=== PATIENT | male | born 1970 | race Hispanic/Latino ===

== ENCOUNTER 2017-09-21 14:29 | Inpatient (IN) | payer OTHER ==
[~2017-09-21] VITALS: Ht 177.8 cm; Wt 72.5 kg
[~2017-09-21 14:29] MED LIST: ALPR1TAB2 PO; AMLO5TAB2 PO; METO50TA18 PO; OMEP20CA10 PO; OMEP20TA25 PO
[2017-09-21] MEDS ORDERED: ONDANSETRON HCL MDV 20ML 2 MG/ML VIAL ONE (14:36)
[2017-09-21] MEDS ORDERED: HALOPERIDOL LACTATE 5 MG/ML VIAL ONE (14:45)
[2017-09-21] MEDS ORDERED: KETOROLAC TROMETHAMINE 30MG/ML ONE (14:45)
[2017-09-21 14:49] LABS: BASOPHILS % (AUTO) 0.9 % (0.0-5.0); EOSINOPHILS % (AUTO) 2.7 % (0.0-8.0); HEMATOCRIT 39.3 % (42-54); LYMPHOCYTES % (AUTO) 15.3 % (21.0-51.0); MEAN CORPUSCULAR HEMOGLOBIN 23.1 pg (27.0-33.0); MEAN CORPUSCULAR HGB CONC 31.7 g/dL (32.0-36.0); MEAN CORPUSCULAR VOLUME 72.7 fL (79-99); MONOCYTES % (AUTO) 7.6 % (3.0-13.0); NEUTROPHILS % (AUTO) 73.5 % (40.0-77.0); NUCLEATED RED BLOOD CELLS 0.1 % (0.0-0.19); PLATELET COUNT (AUTO) 226 K/uL (130-400); RED CELL DISTRIBUTION WIDTH 19.9 % (11.0-15.5); WHITE BLOOD COUNT (AUTO) 7.7 K/uL (4.8-10.8)
[2017-09-21 15:01] LABS: CREATININE 1.2 mg/dL (0.5-1.5)
[2017-09-21] MEDS ORDERED: IOPAMIDOL-370 75 ML VIAL IV ONE (15:06)
[2017-09-21 15:13] LABS: ALBUMIN 4.2 g/dL (3.5-5.0); BILIRUBIN,DIRECT 0.3 mg/dL (0.0-0.3); BILIRUBIN,TOTAL 1.7 mg/dL (0.2-1.0); TOTAL PROTEIN, SERUM 8.7 g/dL (6.0-8.3)
[2017-09-21 15:24] LABS: AMPHET/METH SCREEN,URINE NEGATIVE (NEGATIVE); BARBITURATE SCREEN, URINE NEGATIVE (NEGATIVE); BENZODIAZEPINES SCREEN,URINE POSITIVE (NEGATIVE); CANNABINOID SCREEN,URINE POSITIVE (NEGATIVE); COCAINE SCREEN,URINE NEGATIVE (NEGATIVE); OPIATE SCREEN,URINE NEGATIVE (NEGATIVE); PHENCYCLIDINE SCREEN,URINE NEGATIVE (NEGATIVE)
[2017-09-21] MEDS ORDERED: CEFTRIAXONE SODIUM 1 GM ONE (16:47)
[2017-09-21] MEDS ORDERED: SODIUM CHLORIDE 0.9% 50 ML IV ONE (16:48)
[2017-09-21] MEDS ORDERED: MORPHINE SULFATE 8 MG/ML VIAL ONE (18:34)
[2017-09-21] MEDS ORDERED: ONDANSETRON HCL 4 MG/2 ML VIAL IVP PRN (19:15)
[2017-09-21] MEDS ORDERED: FAMOTIDINE/PF 20 MG/2 ML VIAL IV SCH (21:00)
[2017-09-21 23:45] VITALS: BP 136/63
[2017-09-22] MEDS: DEXTROSE 5 %-0.45 % NACL 1,000 ML IV SCH ×4 (00:31→19:15)
[2017-09-22] MEDS: MORPHINE SULFATE 4 MG/1ML SYG IVP PRN ×4 (00:36→20:08)
[2017-09-22] MEDS ORDERED: ONDANSETRON HCL MDV 20ML 2 MG/ML VIAL IVP PRN (02:07)
[2017-09-22 04:02] VITALS: BP 142/81
[2017-09-22 07:59] VITALS: BP 136/88
[2017-09-22] MEDS ORDERED: PANTOPRAZOLE 40 MG/VIAL IVP SCH (09:00)
[2017-09-22 11:34] VITALS: BP 148/106
[2017-09-22] MEDS ORDERED: HYDRALAZINE HCL 20 MG/ML VIAL IV PRN (15:00)
[2017-09-22 16:16] VITALS: BP 151/109
[2017-09-22 19:00] VITALS: BP 162/115
[2017-09-22] MEDS: LORAZEPAM 2 MG/ML 1 ML VIAL IVP PRN ×2 (19:23→23:29)
[2017-09-22] MEDS: METRONIDAZOLE 500MG/100ML BAG 100 ML IV SCH (21:37)
[2017-09-22] MEDS: QUETIAPINE FUMARATE 25 MG TAB PO SCH (22:15)
[2017-09-22] MEDS: CLONAZEPAM 1 MG TABLET PO SCH (22:15)
[2017-09-22] MEDS: METOPROLOL TARTRATE 50 MG TAB PO SCH (22:15)
[2017-09-22] MEDS ORDERED: CLON0.1T PO (22:18)
[2017-09-22] MEDS ORDERED: CLON1TAB5 PO (22:19)
[2017-09-22] MEDS ORDERED: QUET25TA PO (22:20)
[2017-09-22] MEDS ORDERED: CLONIDINE HCL 0.1 MG TABLET ONE (22:38)
[2017-09-22] MEDS ORDERED: METOPROLOL TARTRATE 50 MG TAB ONE (22:39)
[2017-09-23 00:04] VITALS: BP 132/86
[2017-09-23 03:00] VITALS: BP 143/96
[2017-09-23] MEDS: MORPHINE SULFATE 4 MG/1ML SYG IVP PRN ×2 (03:27→20:03)
[2017-09-23] MEDS: DEXTROSE 5 %-0.45 % NACL 1,000 ML IV SCH ×3 (03:28→22:02)
[2017-09-23 05:21] LABS: EOSINOPHILS % (AUTO) 3.9 % (0.0-8.0); HEMATOCRIT 33.7 % (42-54); LYMPHOCYTES % (AUTO) 14.6 % (21.0-51.0); MEAN CORPUSCULAR HEMOGLOBIN 24.4 pg (27.0-33.0); MEAN CORPUSCULAR HGB CONC 32.9 g/dL (32.0-36.0); MEAN CORPUSCULAR VOLUME 74.2 fL (79-99); NEUTROPHILS % (AUTO) 71.5 % (40.0-77.0); PLATELET COUNT (AUTO) 201 K/uL (130-400); RED BLOOD CELL COUNT(AUTO) 4.54 MIL/uL (4.50-6.20); RED CELL DISTRIBUTION WIDTH 19.6 % (11.0-15.5); WHITE BLOOD COUNT (AUTO) 6.4 K/uL (4.8-10.8)
[2017-09-23 05:42] LABS: ALBUMIN 3.4 g/dL (3.5-5.0); BILIRUBIN,TOTAL 1.3 mg/dL (0.2-1.0); CREATININE 0.9 mg/dL (0.5-1.5); POTASSIUM 3.3 mmol/L (3.5-5.1); TOTAL PROTEIN, SERUM 7.7 g/dL (6.0-8.3)
[2017-09-23] MEDS ORDERED: POTASSIUM CHLORIDE 20MEQ/100ML 100 ML IV PRN (06:15)
[2017-09-23] MEDS ORDERED: POTASSIUM CHLORIDE 10% ELIXIR 20 MEQ/15 ML UDCUP PO PRN (06:15)
[2017-09-23] MEDS ORDERED: LIDOCAINE HCL-MPF 1% 2ML VIAL IVP PRN (06:15)
[2017-09-23] MEDS: METRONIDAZOLE 500MG/100ML BAG 100 ML IV SCH ×3 (06:29→21:54)
[2017-09-23] MEDS: LORAZEPAM 2 MG/ML 1 ML VIAL IVP PRN ×3 (06:32→22:54)
[2017-09-23] MEDS: PANTOPRAZOLE SODIUM 40 MG TABLET.DR PO SCH ×2 (08:54→12:56)
[2017-09-23] MEDS: METOPROLOL TARTRATE 50 MG TAB PO SCH ×2 (08:55→19:59)
[2017-09-23] MEDS ORDERED: CEFTRIAXONE SODIUM 1 GM IV SCH (09:00)
[2017-09-23] MEDS: CEFTRIAXONE SODIUM 1 GM IV SCH (09:00)
[2017-09-23] MEDS: POTASSIUM CHLORIDE 20 MEQ ERTAB PO PRN ×3 (09:17→11:11)
[2017-09-23] MEDS: CLONAZEPAM 1 MG TABLET PO SCH ×2 (09:36→19:59)
[2017-09-23 11:00] VITALS: BP 149/101
[2017-09-23] MEDS: ALPRAZOLAM 1 MG TAB PO PRN (11:10)
[2017-09-23 16:00] VITALS: BP 152/108
[2017-09-23 20:00] VITALS: BP 187/101
[2017-09-23] MEDS: CLONIDINE HCL 0.1 MG TABLET PO PRN (20:00)
[2017-09-23] MEDS: QUETIAPINE FUMARATE 25 MG TAB PO SCH (20:00)
[2017-09-23 23:25] VITALS: BP 144/100
[2017-09-24] MEDS: LORAZEPAM 2 MG/ML 1 ML VIAL IVP PRN ×2 (02:54→12:18)
[2017-09-24] MEDS: DEXTROSE 5 %-0.45 % NACL 1,000 ML IV SCH ×3 (03:15→19:15)
[2017-09-24] MEDS: MORPHINE SULFATE 4 MG/1ML SYG IVP PRN ×3 (03:37→22:37)
[2017-09-24 04:00] VITALS: BP 135/91
[2017-09-24] MEDS: METRONIDAZOLE 500MG/100ML BAG 100 ML IV SCH ×3 (06:26→22:13)
[2017-09-24] MEDS: PANTOPRAZOLE SODIUM 40 MG TABLET.DR PO SCH ×2 (06:27→15:32)
[2017-09-24 08:07] VITALS: BP 149/101
[2017-09-24] MEDS: CEFTRIAXONE SODIUM 1 GM IV SCH (08:40)
[2017-09-24] MEDS: CLONAZEPAM 1 MG TABLET PO SCH ×2 (08:41→20:22)
[2017-09-24] MEDS: METOPROLOL TARTRATE 50 MG TAB PO SCH ×2 (08:41→20:23)
[2017-09-24] MEDS: ALPRAZOLAM 1 MG TAB PO PRN (11:14)
[2017-09-24 11:56] VITALS: BP 142/115
[2017-09-24] MEDS: CLONIDINE HCL 0.1 MG TABLET PO PRN ×2 (15:34→20:23)
[2017-09-24 16:00] VITALS: BP 161/114
[2017-09-24 17:41] VITALS: BP 144/100
[2017-09-24 19:51] VITALS: BP 148/111
[2017-09-24] MEDS: QUETIAPINE FUMARATE 25 MG TAB PO SCH (22:16)
[2017-09-25] VITALS: BP 123/97
[2017-09-25 04:00] VITALS: BP 102/67
[2017-09-25] MEDS: DEXTROSE 5 %-0.45 % NACL 1,000 ML IV SCH (06:32)
[2017-09-25] MEDS: METRONIDAZOLE 500MG/100ML BAG 100 ML IV SCH (06:32)
[2017-09-25] MEDS: PANTOPRAZOLE SODIUM 40 MG TABLET.DR PO SCH (06:32)
[2017-09-25 07:40] VITALS: BP 149/88
== END 2017-09-25 08:15 | disposition home or self-care (01) | DRG 282 ==
LOC: EDH 14:29 → EDHIP 17:56 → OBSVTOIN 17:56 → 4BH 23:02
PROVIDERS: ADMIT Internal Medicine; ATTEND Internal Medicine
DX: K85.90 Acute pancreatitis without necrosis or infection, unspecified (principal); K92.0 Hematemesis; K70.10 Alcoholic hepatitis without ascites; K57.92 Diverticulitis of intestine, part unspecified, without perforation or abscess without bleeding; I10 Essential (primary) hypertension; F10.239 Alcohol dependence with withdrawal, unspecified; F41.9 Anxiety disorder, unspecified; F32.9 Major depressive disorder, single episode, unspecified; Z90.49 Acquired absence of other specified parts of digestive tract; Z71.41 Alcohol abuse counseling and surveillance of alcoholic
CPT/HCPCS: 36415; 71045; 74177; 76700; 80048; 80053; 80076; 80305; 82150; 82550; 83690; 84484; 85025; 93005; A4218; C9113; G0480; J0360; J0696; J1630; J1885; J2060; J2270; J3490; J7042; Q9967

== ENCOUNTER 2018-04-25 23:44 | Emergency (ER) | payer OTHER ==
[~2018-04-25 23:44] MED LIST changes: +ALPR0.5T8 PO; -ALPR1TAB2 PO; -AMLO5TAB2 PO; +CLON0.1T PO; +DESV50TA20 PO; +LISI1TAB11 PO; +METO-391 PO; -METO50TA18 PO; -OMEP20CA10 PO; -OMEP20TA25 PO; +PANT40TA25 PO; +QUET25TA PO
[2018-04-26] MEDS ORDERED: LORAZEPAM 2 MG/ML 1 ML VIAL ONE (00:38)
[2018-04-26] MEDS ORDERED: MAGNESIUM HYDROXIDE 30 ML/UDCUP ONE (00:38)
[2018-04-26] MEDS ORDERED: LIDOCAINE HCL 2% VISCOUS 15 ML UDCUP ONE (00:38)
== END 2018-04-26 01:30 | disposition home or self-care (01) ==
LOC: EDH 23:44
DX: F41.9 Anxiety disorder, unspecified (principal); R06.6 Hiccough; G47.00 Insomnia, unspecified; F32.9 Major depressive disorder, single episode, unspecified; I10 Essential (primary) hypertension; F10.10 Alcohol abuse, uncomplicated; Z79.899 Other long term (current) drug therapy; Z98.890 Other specified postprocedural states
CPT/HCPCS: 96372; 99284; J2060

== ENCOUNTER 2018-07-12 10:49 | Emergency (ER) | payer OTHER ==
[2018-07-12 11:51] LABS: EOSINOPHILS % (AUTO) 0.9 % (0.0-8.0); HEMATOCRIT 36.1 % (42-54); LYMPHOCYTES % (AUTO) 23.7 % (21.0-51.0); MEAN CORPUSCULAR HEMOGLOBIN 22.7 pg (27.0-33.0); MEAN CORPUSCULAR HGB CONC 31.7 g/dL (32.0-36.0); MEAN CORPUSCULAR VOLUME 71.7 fL (79-99); MONOCYTES % (AUTO) 8.2 % (3.0-13.0); NEUTROPHILS % (AUTO) 66.2 % (40.0-77.0); PLATELET COUNT (AUTO) 235 K/uL (130-400); RED BLOOD CELL COUNT(AUTO) 5.03 MIL/uL (4.50-6.20); RED CELL DISTRIBUTION WIDTH 22.1 % (11.0-15.5); WHITE BLOOD COUNT (AUTO) 4.3 K/uL (4.8-10.8)
[2018-07-12] MEDS ORDERED: SODIUM CHLORIDE 0.9% 1000ML 1,000 ML IV ONE (11:53)
[2018-07-12] MEDS ORDERED: THIAMINE HCL 100 MG/ML 2ML VIAL ONE (11:53)
[2018-07-12] MEDS ORDERED: HYOSCYAMINE SULFATE 0.125 MG TAB.SUBL SL ONE (11:53)
[2018-07-12] MEDS ORDERED: ONDANSETRON HCL 4 MG/2 ML VIAL ONE (11:53)
[2018-07-12] MEDS ORDERED: FAMOTIDINE/PF 20 MG/2 ML VIAL IV ONE (11:54)
[2018-07-12 12:11] LABS: CREATININE 1.1 mg/dL (0.5-1.5); POTASSIUM 3.9 mmol/L (3.5-5.1)
[2018-07-12 12:17] LABS: ALBUMIN 3.9 g/dL (3.5-5.0); BILIRUBIN,TOTAL 1.4 mg/dL (0.2-1.0); TOTAL PROTEIN, SERUM 8.4 g/dL (6.0-8.3)
[2018-07-12 14:33] LABS: BILIRUBIN,URINE Negative (NEGATIVE); COLOR,URINE Yellow (YELLOW); GLUCOSE, URINE (UA) Negative (NEGATIVE); KETONES,URINE Trace mg/dL (NEGATIVE); LEUKOCYTE ESTERASE ,URINE Negative (NEGATIVE); NITRATE,URINE Negative (NEGATIVE); OCCULT BLOOD,URINE Negative (NEGATIVE); PROTEIN,URINE Negative (NEGATIVE); UROBILINOGEN,URINE 0.2 mg/dL (0.2-1.0)
[2018-07-12 14:36] LABS: APPEARANCE,URINE CLEAR (CLEAR)
[2018-07-12 14:46] LABS: AMPHET/METH SCREEN,URINE NEGATIVE (NEGATIVE); BARBITURATE SCREEN, URINE NEGATIVE (NEGATIVE); BENZODIAZEPINES SCREEN,URINE NEGATIVE (NEGATIVE); CANNABINOID SCREEN,URINE NEGATIVE (NEGATIVE); COCAINE SCREEN,URINE NEGATIVE (NEGATIVE); OPIATE SCREEN,URINE NEGATIVE (NEGATIVE); PHENCYCLIDINE SCREEN,URINE NEGATIVE (NEGATIVE)
== END 2018-07-12 14:45 | disposition home or self-care (01) ==
LOC: EDH 10:49
DX: K70.10 Alcoholic hepatitis without ascites (principal); E87.1 Hypo-osmolality and hyponatremia; E86.0 Dehydration; F10.10 Alcohol abuse, uncomplicated; F41.9 Anxiety disorder, unspecified; F32.9 Major depressive disorder, single episode, unspecified; I10 Essential (primary) hypertension
CPT/HCPCS: 36415; 71045; 74176; 80053; 80305; 81003; 82150; 82550; 83690; 84484; 85025; 93005; 96361; 96374; 96375; 99284; G0480; J2405; J3411; J3490; J7030

== ENCOUNTER 2019-02-23 12:25 | Inpatient (IN) | payer OTHER ==
[~2019-02-23] VITALS: Ht 179.1 cm; Wt 80.7 kg
[2019-02-23] VITALS (8 sets, daily range): BP systolic 111–158; BP diastolic 82–108
[~2019-02-23 12:25] MED LIST changes: -LISI1TAB11 PO; +LISI1TAB28 PO
[2019-02-23] MEDS ORDERED: SODIUM CHLORIDE 0.9% 1000ML 1,000 ML IV ONE (12:41)
[2019-02-23] MEDS ORDERED: ONDANSETRON HCL 4 MG/2 ML VIAL ONE (12:42)
[2019-02-23] MEDS ORDERED: MORPHINE SULFATE 4 MG/1ML SYG ONE (12:42)
[2019-02-23] MEDS ORDERED: IOHEXOL-350 75 ML VIAL IV ONE (13:07)
[2019-02-23 13:09] LABS: BASOPHILS % (AUTO) 0.4 % (0.0-5.0); EOSINOPHILS % (AUTO) 0.3 % (0.0-8.0); HEMATOCRIT 40.8 % (42-54); LYMPHOCYTES % (AUTO) 8.4 % (21.0-51.0); MEAN CORPUSCULAR HEMOGLOBIN 23.2 pg (27.0-33.0); MEAN CORPUSCULAR HGB CONC 32.2 g/dL (32.0-36.0); MEAN CORPUSCULAR VOLUME 72.3 fL (79-99); MONOCYTES % (AUTO) 9.4 % (3.0-13.0); NEUTROPHILS % (AUTO) 81.5 % (40.0-77.0); NUCLEATED RED BLOOD CELLS 0.1 % (0.0-0.19); PLATELET COUNT (AUTO) 304 K/uL (130-400); RED BLOOD CELL COUNT(AUTO) 5.64 MIL/uL (4.50-6.20); RED CELL DISTRIBUTION WIDTH 24.2 % (11.0-15.5)
[2019-02-23 13:16] LABS: ALBUMIN 4.7 g/dL (3.5-5.0); BILIRUBIN,TOTAL 2.8 mg/dL (0.2-1.0); CREATININE 1.7 mg/dL (0.5-1.5); TOTAL PROTEIN, SERUM 9.9 g/dL (6.0-8.3)
[2019-02-23 13:22] LABS: POTASSIUM 2.9 mmol/L (3.5-5.1)
[2019-02-23] MEDS ORDERED: POTASSIUM BICARB/CIT AC 25 MEQ TABLET.EFF ONE (13:46)
[2019-02-23] MEDS ORDERED: LORAZEPAM 2 MG/ML 1 ML VIAL ONE (13:47)
[2019-02-23] MEDS ORDERED: POTASSIUM CHLORIDE 10% ELIXIR 20 MEQ/15 ML UDCUP PO PRN (15:15)
[2019-02-23] MEDS: DEXTROSE 5 % AND 0.9 % NACL 1,000 ML IV SCH (16:45)
[2019-02-23] MEDS: CHLORDIAZEPOXIDE HCL 25 MG CAP PO SCH ×2 (16:53→23:37)
--- NOTE | 2019-02-23 17:44 | NUR ---
ADMISSION NOTE Received patient from ER in no distress but very anxious. He is fidgety. Restless. Heart rate in the 140s. Started on D5NS at 125mL/hr to left antecubital vein # 20g; site healthy and patient. He had to be reminded many times during the admission process to keep his arm straight. He was cooperative with the assessment and admission process but requested ativan. Ativan was not ordered. An Alcohol Assesment was done using CIWA Tool and his score is 19. Librium was ordered and 25mg were given as soon as possible. His heart rate at the end of the admission process was in the high 130s. He reported that he has had loose bowel movements with bright, red blood for a week and today they came to a stop. He states he has been drinking for a while and that he drinks 22 beers a day. He also reported some symptoms that suggest urinary problems, e.g. burning on urination, very concentrated, painful area in the pelvic area at the urinary bladder area, an also decreased urinary output. Stated he is having difficulty urinating. Dr. Lan was paged to notify him of these patient's reports and requests and of nursing findings and to ask for telemetry if recommended by him. Patient was placed on fall precautions. He was made aware not to get up from bed without calling nursing staff and to wait for nursing staff to help with with any needs to prevent any falls. He verbalized understanding and demonstrated comprehension and willingness to be compliant with this request from nursing. Patient is alert and oriented X 2 and easily reoriented to date of month. He is oriented to place, month, year and day. Not aggresive, not combative, not hallucinating. Overall pleasant an talkative but is visibly anxious and would like to be medicated. Pending for Dr. Lan to call back.
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
--- NOTE | 2019-02-23 19:01 | NUR ---
HALLUCINATIONS Family also reported that patient has been hallucinating at home, seeing people going in and out who are not there. And seeing people getting into and out of closets.
[2019-02-23] MEDS ORDERED: QUET200T29 PO (19:27)
[2019-02-23] MEDS ORDERED: DICY10CA13 PO (19:27)
[2019-02-23] MEDS ORDERED: PROCTOCM PR (19:27)
--- NOTE | 2019-02-23 20:04 | NUR ---
PSYCH NURSING NOTE Dr. Rios came and is in room with night nurse Dolly. Patient reported that he combined tramadol for pain wth xanax for anxiety and desvenlafaxine for depression plus cocaine and that is why he feels and is this way, having these ideas and feelings. urine drug screen ordered by Dr. Rios. Pending urine collection for the UDS and for the urine culture. At change of shift, patient stated he was ready to go and removed his blood pressure cuff and motioned he was going to get out of bed. He was reassured to stay in bed and he agreed. Dr. Rios was made aware that patient had mentioned he was ready to go and had briefly wanted to leave. Also, patient's blood pressure has been on the high side and he took his clonidine 0.1mg and his metoprolol 50mg slightly prior to change of shift. All his home medications have been entered and are pending to be restarted.
[2019-02-23] MEDS: CEFTRIAXONE SODIUM 1 GM IVP SCH (20:31)
[2019-02-23] MEDS: LORAZEPAM 2 MG/ML 1 ML VIAL IM PRN (20:34)
[2019-02-23 21:06] LABS: APPEARANCE,URINE CLEAR (CLEAR); BILIRUBIN,URINE MODERATE (NEGATIVE); COLOR,URINE YELLOW (YELLOW); GLUCOSE, URINE (UA) NEGATIVE (NEGATIVE); KETONES,URINE 15 mg/dL (NEGATIVE); LEUKOCYTE ESTERASE ,URINE NEGATIVE (NEGATIVE); NITRATE,URINE NEGATIVE (NEGATIVE); OCCULT BLOOD,URINE NEGATIVE (NEGATIVE); PH,URINE 6.5 (5.0-8.0); PROTEIN,URINE 100 mg/dL (NEGATIVE)
[2019-02-23 21:15] LABS: AMPHET/METH SCREEN,URINE POSITIVE (NEGATIVE); BARBITURATE SCREEN, URINE NEGATIVE (NEGATIVE); BENZODIAZEPINES SCREEN,URINE POSITIVE (NEGATIVE); CANNABINOID SCREEN,URINE POSITIVE (NEGATIVE); COCAINE SCREEN,URINE NEGATIVE (NEGATIVE); OPIATE SCREEN,URINE POSITIVE (NEGATIVE); PHENCYCLIDINE SCREEN,URINE NEGATIVE (NEGATIVE)
[2019-02-23] MEDS ORDERED: OLANZAPINE ODT 5 MG TAB SL SCH (21:15)
[2019-02-23 21:31] LABS: BACTERIA,URINE Few /HPF (None Seen); RBC,URINE 0-1 /HPF (0-1); WBC,URINE 0-1 /HPF (0-1)
[2019-02-23 21:32] LABS: SQUAMOUS EPITHELIAL CELL,UR Rare /HPF (0-2)
[2019-02-23] MEDS: POTASSIUM CHLORIDE 20 MEQ ERTAB PO PRN (23:44)
[2019-02-23] MEDS: POTASSIUM CHLORIDE 20MEQ/100ML 100 ML IV PRN (23:45)
[2019-02-23] MEDS: LIDOCAINE HCL-MPF 1% 2ML VIAL IJ PRN (23:45)
[2019-02-24] VITALS: BP 133/74
[2019-02-24] MEDS: DEXTROSE 5 % AND 0.9 % NACL 1,000 ML IV SCH ×5 (01:21→23:09)
[2019-02-24] MEDS: MORPHINE SULFATE 4 MG/1ML SYG IVP PRN ×2 (02:19→13:48)
[2019-02-24 03:22] VITALS: BP 142/96
[2019-02-24] MEDS: LORAZEPAM 2 MG/ML 1 ML VIAL IM PRN ×3 (04:11→20:40)
[2019-02-24 05:43] LABS: BASOPHILS % (AUTO) 1.8 % (0.0-5.0); EOSINOPHILS % (AUTO) 3.6 % (0.0-8.0); HEMATOCRIT 33.4 % (42-54); LYMPHOCYTES % (AUTO) 21.2 % (21.0-51.0); MEAN CORPUSCULAR HEMOGLOBIN 23.1 pg (27.0-33.0); MEAN CORPUSCULAR HGB CONC 31.9 g/dL (32.0-36.0); MEAN CORPUSCULAR VOLUME 72.3 fL (79-99); MONOCYTES % (AUTO) 8.6 % (3.0-13.0); NEUTROPHILS % (AUTO) 64.8 % (40.0-77.0); PLATELET COUNT (AUTO) 249 K/uL (130-400); RED BLOOD CELL COUNT(AUTO) 4.63 MIL/uL (4.50-6.20); RED CELL DISTRIBUTION WIDTH 23.5 % (11.0-15.5); WHITE BLOOD COUNT (AUTO) 6.2 K/uL (4.8-10.8)
[2019-02-24 06:05] LABS: ALBUMIN 3.6 g/dL (3.5-5.0); BILIRUBIN,TOTAL 1.8 mg/dL (0.2-1.0); CREATININE 1.1 mg/dL (0.5-1.5); POTASSIUM 3.4 mmol/L (3.5-5.1); TOTAL PROTEIN, SERUM 7.9 g/dL (6.0-8.3)
[2019-02-24] MEDS: CHLORDIAZEPOXIDE HCL 25 MG CAP PO SCH ×5 (06:20→21:45)
[2019-02-24 07:00] VITALS: BP 124/47
--- NOTE | 2019-02-24 07:00 | NUR ---
PATIENT UPDATE Pt started on all meds ordered by Dr. Rios but remained restless and agitated overnight. Oriented x 1, talks non stop, with flight of ideas. Openly admits about his alcohol abuse and polysubstance abuse , ua came out positive for benzo, thc,amphetamines and opiates. CIWA score in the 30's, ativan 2 mg given iv push q 8 hrs as needed, Pt kept on fall, aspiration and seizure precautions. Tries jumping out of bed with the siderails up, walked around the pods with the 1:[address] Rios on three different phone numbers provided, left a message on one , no response received.
[2019-02-24] MEDS: MAGNESIUM OXIDE 400 MG TABLET PO SCH ×2 (10:20→15:03)
[2019-02-24] MEDS: POTASSIUM CHLORIDE 20 MEQ ERTAB PO PRN ×2 (10:21→12:52)
[2019-02-24] MEDS: OLANZAPINE ODT 5 MG TAB SL SCH ×3 (10:21→20:28)
[2019-02-24 11:00] VITALS: BP 143/74
--- NOTE | 2019-02-24 13:30 | NUR ---
MET W PATIENT 1;1 AT BEDSIDE, PT INCOHERENT, CHARMING, PLEASE AND THANK YOU , BUT UNABLE TO PUT TWO SENTENCES TOGETHER THAT MAKE SENSE. PT VERY ACTIVE, PULLING AT LINES, WANTING TO [facility]. [facility] GET[facility] OUT OF HERE CALL TO MOM. HISTORY FOLLOW. DX WITH BIPOLAR MANIC DISORDER MANY YEARS AGO, MORE THAN 10; WAS IN [place] AND TREATED BY DR. MCKEON FOR YEARS, THEN MEDS GOT TO BE TOO EXPENSIVE, STOPPED TAKING MED, WHEN INTO CYCLE OF UP/DOWN, WHEN DOWN, TAKES DRUGS, BECAME ADDICTED, HAS BEEN AT [facility] TWICE; SHARLENE GO BACK BECAUSE ITS TOO EXPENSIVE. PATIENT SHARLENE COME HOME TO LIVE W MOM, SHE STATES ITS TOOO CHAOTIC WITH HIM AROUND. NEES A TROPICAL [place] BUT NOT MEDS THAT ARE EXPENSIVE, BECAUSE THAT JUST CANNOT HAPPEN. USED TO BE ON LITHIUM MANY YEARS AGO AND SOME TIMES WHEN HE GOE INTO HOSPITAL IS ALSO ON LITHIUM. MOM AT END OF . REVIEWED [facility] NOTES. NO MENTION AT ALL OF BIPOLAR OR MANIC DISORDER. NOT WITH BASIC INFO FROM MOM PLACED IN CHART FOR HIS REVIEW Addendum: 02/24/19 at 1537 by MIKE PEREZ RN Amended: Links added.
[2019-02-24 16:00] VITALS: BP 96/46
[2019-02-24 20:00] VITALS: BP 158/103
[2019-02-24] MEDS: CEFTRIAXONE SODIUM 1 GM IVP SCH (20:40)
[2019-02-24] MEDS ORDERED: ZIPRASIDONE MESYLATE 20 MG/VIAL IM ONE (21:23)
[2019-02-24] MEDS ORDERED: CHLORDIAZEPOXIDE HCL 25 MG CAP PO ONE (21:30)
[2019-02-24] MEDS ORDERED: LORAZEPAM 2 MG/ML 1 ML VIAL IVP PRN (21:45)
--- NOTE | 2019-02-24 22:00 | NUR ---
ROUNDED Pt received very confused and disoriented, shirt off. Continues to keep talking about different things not related to one another, wants to walk outside his room , wander around and tries to go to other patient's room. Pulled his iv from prev shift, refused to be connected back to the ivf, hasn't slept for more than 24 hrs. Morning nurse reported a code manpower incident x 2 involving this pt, hasn't slept at all and never stopped going around despite the prescribed meds. Dr. Rios on rounds, updated about pt's overall status and how the meds are not helping him at all .Ativan 2 mg given iv push, changed to q 6hrs prn now, still on the zyprexa zydis 10mg sl tid. talked to the pharmacist about meds, Librium dosage increased to 50 mg po q 6hrs and geodon 20mg im bid added to the regimen. Pt finally went to sleep, connected back to the ivf of d5ns at 125 cc/hr., on tele monitoring, was running hr in the 140's to 150's at the height of agitation with the blood pressure at 158/[address] Rios talked to the warehouse team leader DJ to call Anesthesia for possible intubation, to protect the airway at the height of these withdrawal symptoms and pt getting a lot of meds. Dr. Dejesus came and talked to Dr. Rios at 2121 about the plan of care. Anesthesia decided to intubate the pt in the am since he just had taken some po psychiatric meds. Will keep pt npo from now and pt will be transferred to ICU this am where he will get intubated, and to consult [facility] for ICU management.
[2019-02-24] MEDS: ZIPRASIDONE MESYLATE 20 MG/VIAL IM SCH (22:01)
[2019-02-25] VITALS (19 sets, daily range): BP systolic 135–183; BP diastolic 73–117
[2019-02-25] MEDS: POTASSIUM CHLORIDE 20MEQ/100ML 100 ML IV PRN (02:09)
[2019-02-25] MEDS: LIDOCAINE HCL-MPF 1% 2ML VIAL IJ PRN (02:09)
[2019-02-25] MEDS: CHLORDIAZEPOXIDE HCL 25 MG CAP PO SCH ×4 (03:45→21:45)
[2019-02-25 04:49] LABS: HEMATOCRIT 31.8 % (42-54); MEAN CORPUSCULAR HEMOGLOBIN 23.3 pg (27.0-33.0); MEAN CORPUSCULAR HGB CONC 31.2 g/dL (32.0-36.0); MEAN CORPUSCULAR VOLUME 74.6 fL (79-99); PLATELET COUNT (AUTO) 203 K/uL (130-400); RED BLOOD CELL COUNT(AUTO) 4.26 MIL/uL (4.50-6.20); RED CELL DISTRIBUTION WIDTH 23.5 % (11.0-15.5); WHITE BLOOD COUNT (AUTO) 5.1 K/uL (4.8-10.8)
[2019-02-25 05:17] LABS: ALBUMIN 3.2 g/dL (3.5-5.0); CREATININE 0.9 mg/dL (0.5-1.5); POTASSIUM 3.8 mmol/L (3.5-5.1); TOTAL PROTEIN, SERUM 7.1 g/dL (6.0-8.3)
[2019-02-25] MEDS: DEXTROSE 5 % AND 0.9 % NACL 1,000 ML IV SCH ×2 (05:44→21:11)
--- NOTE | 2019-02-25 06:09 | NUR ---
PATIENT UPDATE Patient asleep the whole night, responded to the new meds added. Vital signs more stable. Noted some intermittent tremors mostly in the upper extremities, kept npo. Was incontinent of urine 3x, was changed, kept warm and dry and remained under sedation with the o2 sat at 95% on room air, will continue to monitor. Patient kept npo, to be transferred to ICU this am for anesthesia to intubate while having major withdrawal symptoms from the polysubstance abuse. TO call Dr. Rouse this am about the transfer and for ICU management.
--- NOTE | 2019-02-25 06:51 | NUR ---
TRANFER TO ICU Dr. ANTHONY ON ROUNDS, UPDATED WITH THE PLAN TO TRANSFER TO ICU. REPORT GIVEN TO ICU NURSE WHO WILL ASSUME CARE OF PT. TRANSFERRED TO ICU VIA THE BED, ATIVAN 2 MG GIVEN SLOW IV FOR AGITATION PER PATIENT'S REQUEST.
--- NOTE | 2019-02-25 07:05 | NUR ---
TRANSFER Received to room 219 from room 326 by bed. Placed on ICU bedside monitor - ST on tele. VS as recorded. Pt sleeping upon arrival - arousable with verbal/tactile stimulation. Reoriented to room/situation. Pt does not maintain appropriate level of arousal. Side rails up for safety. Bed exit alarm active. Sitter at bedside. Of note pt arrived with infiltrated PIV to RW. By report, pt has second PIV/SL to LW.
--- NOTE | 2019-02-25 07:35 | NUR ---
STATUS Pt now briskly alert - conversant. Tremors noted to BUE's. Denies nausea or MONTERO. Pt able to maintain appropriate conversation with this RN. Aware of situation surrounding admission. Reoriented to day/time of day. Pt made aware of reason for transfer to ICU. Discussed order from for transfer to ICU with consult for pulmonary/critical care and elective intubation for suspected withdrawal and potential for pt to effectively protect his airway secondary to amount of medication he has already received prior to arrival to ICU. Pt acknowledged understanding - voiced questions regarding "delaying this". Will defer to critical care MD on rounds.
[2019-02-25] MEDS: MAGNESIUM OXIDE 400 MG TABLET PO SCH ×2 (08:00→16:39)
--- NOTE | 2019-02-25 08:15 | NUR ---
CRITICAL CARE CONSULT [facility] answering service contacted regarding consult. Awaiting return call from AMIRAH Toure.
[2019-02-25] MEDS: ZIPRASIDONE MESYLATE 20 MG/VIAL IM SCH (09:00)
[2019-02-25] MEDS: OLANZAPINE ODT 5 MG TAB SL SCH ×3 (09:00→21:11)
[2019-02-25] MEDS: MORPHINE SULFATE 4 MG/1ML SYG IVP PRN ×3 (09:02→21:15)
--- NOTE | 2019-02-25 10:00 | NUR ---
STATUS Sleeping soundly. Respirations are even, non-labored. No evidence of distress. ST on tele. Sitter remains at bedside.
--- NOTE | 2019-02-25 10:10 | NUR ---
FAMILY UPDATE Spoke to pt's mom at length regarding pt's current status as well as anticipated plan of care. Questions addressed.
--- NOTE | 2019-02-25 11:00 | NUR ---
STATUS Pt sleeping soundly. No evidence of distress. Sitter at bedside. Will continue to observe. Pending evaluation by critical care MD.
--- NOTE | 2019-02-25 12:00 | NUR ---
PT CARE Care of pt endorsed to IRMA Alberto.
--- NOTE | 2019-02-25 13:10 | NUR ---
MD VISIT in to see pt - updated. Pt engaged appropriately with MD. Plan of care discussed. MD aware of pending evaluation by .
[2019-02-25] MEDS ORDERED: [UNRECOGNIZED DRUG - OTHER] IV SCH (13:45)
[2019-02-25] MEDS ORDERED: ZIPRASIDONE MESYLATE 20 MG/VIAL IM PRN (13:45)
[2019-02-25] MEDS ORDERED: M V I IV SCH ×2 (13:45→14:12)
[2019-02-25] MEDS ORDERED: THIAMINE HCL IV SCH ×2 (13:45→14:12)
[2019-02-25] MEDS ORDERED: FOLIC ACID IV SCH ×2 (13:45→14:12)
--- NOTE | 2019-02-25 14:00 | NUR ---
MD VISIT Dr. Rouse in to see pt, update given. New orders received and will carry out.
[2019-02-25] MEDS ORDERED: [UNRECOGNIZED DRUG - OTHER] IV SCH (14:12)
[2019-02-25] MEDS: METOPROLOL TARTRATE 1 MG/ML 5ML VIAL IV PRN (17:48)
[2019-02-25] MEDS: CEFTRIAXONE SODIUM 1 GM IVP SCH (21:11)
[2019-02-25] MEDS: PANTOPRAZOLE SODIUM 40 MG TABLET.DR PO SCH (21:17)
--- NOTE | 2019-02-25 22:30 | NUR ---
MANOJ ARANDA SCORE ZERO. LIBRIUM HELD.
[2019-02-26] VITALS (28 sets, daily range): BP systolic 120–176; BP diastolic 76–116
[2019-02-26] MEDS: CHLORDIAZEPOXIDE HCL 25 MG CAP PO SCH ×4 (03:45→21:37)
[2019-02-26] MEDS: DEXTROSE 5 % AND 0.9 % NACL 1,000 ML IV SCH ×3 (05:51→21:37)
[2019-02-26] MEDS: MORPHINE SULFATE 4 MG/1ML SYG IVP PRN ×3 (05:52→21:50)
[2019-02-26] MEDS: PANTOPRAZOLE SODIUM 40 MG TABLET.DR PO SCH (07:45)
[2019-02-26] MEDS: THIAMINE HCL 100 MG TABLET PO SCH (07:45)
[2019-02-26] MEDS: OLANZAPINE ODT 5 MG TAB SL SCH ×3 (07:45→20:27)
[2019-02-26] MEDS: MAGNESIUM OXIDE 400 MG TABLET PO SCH ×2 (07:46→16:11)
[2019-02-26] MEDS: MULTIVITAMIN TABLET PO SCH (07:46)
[2019-02-26 08:31] LABS: HEMATOCRIT 31.2 % (42-54); MEAN CORPUSCULAR HGB CONC 31.4 g/dL (32.0-36.0); MEAN CORPUSCULAR VOLUME 73.2 fL (79-99); PLATELET COUNT (AUTO) 198 K/uL (130-400); RED BLOOD CELL COUNT(AUTO) 4.26 MIL/uL (4.50-6.20); RED CELL DISTRIBUTION WIDTH 23.8 % (11.0-15.5); WHITE BLOOD COUNT (AUTO) 5.1 K/uL (4.8-10.8)
[2019-02-26 08:38] LABS: CREATININE 1.4 mg/dL (0.5-1.5); POTASSIUM 3.2 mmol/L (3.5-5.1)
[2019-02-26] MEDS: LORAZEPAM 2 MG/ML 1 ML VIAL IVP PRN ×2 (12:28→21:50)
--- NOTE | 2019-02-26 12:45 | NUR ---
MD VISIT Dr. Rouse in to see pt, new orders received and will carry out.
[2019-02-26] MEDS: POTASSIUM CHLORIDE 20 MEQ ERTAB PO PRN (16:11)
[2019-02-26] MEDS: METOPROLOL TARTRATE 1 MG/ML 5ML VIAL IV PRN ×2 (21:25→21:49)
[2019-02-27] VITALS (20 sets, daily range): BP systolic 114–166; BP diastolic 57–119
[2019-02-27 04:13] LABS: HEMATOCRIT 28.2 % (42-54); MEAN CORPUSCULAR HEMOGLOBIN 23.5 pg (27.0-33.0); MEAN CORPUSCULAR HGB CONC 29.5 g/dL (32.0-36.0); MEAN CORPUSCULAR VOLUME 79.5 fL (79-99); PLATELET COUNT (AUTO) 164 K/uL (130-400); RED BLOOD CELL COUNT(AUTO) 3.55 MIL/uL (4.50-6.20); RED CELL DISTRIBUTION WIDTH 24.2 % (11.0-15.5); WHITE BLOOD COUNT (AUTO) 5.7 K/uL (4.8-10.8)
[2019-02-27] MEDS: LORAZEPAM 2 MG/ML 1 ML VIAL IVP PRN ×4 (04:26→20:41)
[2019-02-27] MEDS: CHLORDIAZEPOXIDE HCL 25 MG CAP PO SCH ×4 (04:26→20:42)
[2019-02-27] MEDS: DEXTROSE 5 % AND 0.9 % NACL 1,000 ML IV SCH ×2 (05:33→10:32)
[2019-02-27 05:42] LABS: CREATININE 1.2 mg/dL (0.5-1.5); POTASSIUM 3.3 mmol/L (3.5-5.1)
--- NOTE | 2019-02-27 06:27 | NUR ---
PATIENT UPDATE Pt continues to have major agitation, ciwa scores bet 21-28 due geodon and ativan given accdg to parameters. Received with the iv site leaking, bed and gown wet. Attempted starting a new iv site, with 3 people trying. Finally started one on the rt wrist at 2145, ivf of d5ns at 150 restarted. Due meds given. Heart rate in the 150's when severely agitated, blood pressure elevated, due meds given. Continues with the 1:1 sitter, gets up to the toilet with assistance. Denies hallucination but continues to talk at random to nobody about nothing specific. Medicated with morphine last night for llq pain which afforded relief, tolerating po liquids, no nausea and vomiting.
[2019-02-27] MEDS: OLANZAPINE ODT 5 MG TAB SL SCH ×3 (07:41→20:43)
[2019-02-27] MEDS: THIAMINE HCL 100 MG TABLET PO SCH (07:42)
[2019-02-27] MEDS: MAGNESIUM OXIDE 400 MG TABLET PO SCH ×2 (07:42→16:31)
[2019-02-27] MEDS: MULTIVITAMIN TABLET PO SCH (07:42)
[2019-02-27] MEDS: PANTOPRAZOLE SODIUM 40 MG TABLET.DR PO SCH (07:42)
[2019-02-27] MEDS: MORPHINE SULFATE 4 MG/1ML SYG IVP PRN ×3 (07:43→20:41)
--- NOTE | 2019-02-27 12:30 | NUR ---
MD VISIT Dr. Rouse in to see pt, plan of care discussed, new orders received.
--- NOTE | 2019-02-27 16:30 | NUR ---
TRANSFER Pt transferred to room 222 in no distress. All belongings taken with the pt, telemetry pack applied prior to transfer. Report given to Ailin Dietrich RN.
--- NOTE | 2019-02-27 20:15 | NUR ---
PT STATED HE HAS DIFFICULTY VOIDING. WILL INFORM DR ANTHONY DURING ROUNDS.
[2019-02-28] MEDS: LORAZEPAM 2 MG/ML 1 ML VIAL IVP PRN (01:05)
[2019-02-28] MEDS: DEXTROSE 5 % AND 0.9 % NACL 1,000 ML IV SCH ×3 (02:25→22:05)
[2019-02-28 03:50] VITALS: BP 155/87
[2019-02-28] MEDS: CHLORDIAZEPOXIDE HCL 25 MG CAP PO SCH ×4 (03:55→21:40)
[2019-02-28] MEDS: POTASSIUM CHLORIDE 20 MEQ ERTAB PO PRN ×3 (03:55→09:53)
[2019-02-28] MEDS: MORPHINE SULFATE 4 MG/1ML SYG IVP PRN ×4 (03:56→22:42)
--- NOTE | 2019-02-28 04:02 | NUR ---
PT CONTINUES ON ETOH AND CIWA PROTOCOL. ALCOHOL ASSESSMENT SCORES RANGING FROM 9-14. PT STABLE. DOES HAS TREMORS. AA03. IMPULSIVE AT TIMES, BUT COMPLIANT TO CARE. 1:1 MONITORING. CONTINUES ON LIBRIUM, ATIVAN, MORPHINE.
[2019-02-28 04:22] LABS: HEMATOCRIT 29.7 % (42-54); MEAN CORPUSCULAR HEMOGLOBIN 23.6 pg (27.0-33.0); MEAN CORPUSCULAR HGB CONC 32.2 g/dL (32.0-36.0); MEAN CORPUSCULAR VOLUME 73.3 fL (79-99); PLATELET COUNT (AUTO) 182 K/uL (130-400); RED BLOOD CELL COUNT(AUTO) 4.05 MIL/uL (4.50-6.20); RED CELL DISTRIBUTION WIDTH 23.2 % (11.0-15.5); WHITE BLOOD COUNT (AUTO) 5.1 K/uL (4.8-10.8)
[2019-02-28 04:32] LABS: CREATININE 1.2 mg/dL (0.5-1.5); POTASSIUM 3.2 mmol/L (3.5-5.1)
[2019-02-28 07:00] VITALS: BP 135/93
[2019-02-28] MEDS: MAGNESIUM OXIDE 400 MG TABLET PO SCH ×3 (08:00→15:17)
--- NOTE | 2019-02-28 08:00 | NUR ---
ASSESSMENT ENCOUNTERED PT ASLEEP BUT AROUSEABLE, A&OX3, CALM COOPERATIVE AND DOES NOT APPEAR TO BE IN ANY DISTRESS NOR ANY NEURO DEFICITS PRESENT. PT DENIES SOB, NAUSEA BUT DOES C/O INTERMITTENT ABDOMINAL PAIN WITHOUT NAUSEA, VOMITING OR DIARRHEA. PT IS AMBULATORY, GAIT STEADY AND STRONG WITH STAND BY ASSIST. PT TOLERATING FOODS, FLUIDS AND MEDICATIONS WITH NO THROAT CLEARING OR COUGH. CALL LIGHT WITHIN REACH, SITTER AT BEDSIDE.
[2019-02-28] MEDS: MULTIVITAMIN TABLET PO SCH (09:52)
[2019-02-28] MEDS: PANTOPRAZOLE SODIUM 40 MG TABLET.DR PO SCH (09:52)
[2019-02-28] MEDS: OLANZAPINE ODT 5 MG TAB SL SCH ×3 (09:52→21:04)
[2019-02-28] MEDS: THIAMINE HCL 100 MG TABLET PO SCH (09:53)
--- NOTE | 2019-02-28 10:40 | NUR ---
AMBULATION PT AMBULATING TO BATHROOM AND BACK TO CHAIR, GAIT STEADY AND STRONG WITH STAND BY ASSIST, MOTHER AT BEDSIDE, PT EXPLAINED OF ETOH ABUSE, RISKS FOR OTHER LIVER DISORDERS. PT STATED THAT HE UNDERSTOOD AND STATED THAT HE WILL SEEK REHAB FACILITIES. PT APPEARS TO BE PROACTIVE WITH SEEKING REHAB. CALL LIGHT WITHIN REACH, FAMILY AND SITTER AT BEDSIDE.
[2019-02-28 11:00] VITALS: BP 148/89
[2019-02-28 15:00] VITALS: BP 158/80
[2019-02-28 19:12] VITALS: BP 129/94
[2019-02-28] MEDS ORDERED: QUETIAPINE FUMARATE 100 MG TAB PO SCH (21:00)
[2019-02-28] MEDS ORDERED: TAMSULOSIN HCL 0.4 MG CAP.ER.24H PO SCH (21:00)
[2019-02-28 23:31] VITALS: BP 142/89
[2019-03-01 03:58] VITALS: BP 145/93
[2019-03-01] MEDS: CHLORDIAZEPOXIDE HCL 25 MG CAP PO SCH (04:22)
[2019-03-01] MEDS: MORPHINE SULFATE 4 MG/1ML SYG IVP PRN (04:50)
[2019-03-01] MEDS: DEXTROSE 5 % AND 0.9 % NACL 1,000 ML IV SCH (04:56)
[2019-03-01 07:05] LABS: HEMATOCRIT 30.5 % (42-54); MEAN CORPUSCULAR HEMOGLOBIN 23.4 pg (27.0-33.0); MEAN CORPUSCULAR HGB CONC 31.2 g/dL (32.0-36.0); NUCLEATED RED BLOOD CELLS 0.1 % (0.0-0.19); PLATELET COUNT (AUTO) 186 K/uL (130-400); RED BLOOD CELL COUNT(AUTO) 4.06 MIL/uL (4.50-6.20); RED CELL DISTRIBUTION WIDTH 23.5 % (11.0-15.5); WHITE BLOOD COUNT (AUTO) 4.3 K/uL (4.8-10.8)
[2019-03-01 07:18] LABS: ALBUMIN 2.9 g/dL (3.5-5.0); CREATININE 1.3 mg/dL (0.5-1.5); POTASSIUM 3.7 mmol/L (3.5-5.1); TOTAL PROTEIN, SERUM 7.5 g/dL (6.0-8.3)
--- NOTE | 2019-03-01 07:30 | NUR ---
ASSESSMENT ENCOUNTERED PT SITTING UP IN CHAIR, A&OX3, CALM COOPERATIVE AND DOES NOT APPEAR TO BE IN ANY DISTRESS NOR ANY NEURO DEFICITS PRESENT. PT DENIES PAIN, SOB, NAUSEA. PT IS AMBULATORY, GAIT STEADY AND STRONG WITH STAND BY ASSIST. PT INFORMED OF DISCHARGE ORDER TO HOME BY DR ANTHONY. CALL LIGHT AND PERSONAL ITEMS WITHIN REACH. SITTER DISCONTINUED.
[2019-03-01 07:36] VITALS: BP 123/89
[2019-03-01 07:42] LABS: BASOPHILS % (MANUAL) 1 % (0-2); EOSINOPHILS % (MANUAL) 7 % (1-6); LYMPHOCYTES % (MANUAL) 20 % (22-44); MAN.DIFF COMMENT-IMPRESSION MANUAL DIFFERENTIAL; MONOCYTES % (MANUAL) 6 % (2-9); SEGMENTED NEUTROPHILS % 66 % (40-70)
[2019-03-01 07:44] LABS: PLATELET MORPHOLOGY COMMENT LARGE PLTS PRESENT
--- NOTE | 2019-03-01 08:33 | NUR ---
DISCHARGE INSTRUCTIONS GIVEN, PIV REMOVED AND INTACT, PT TOLERATED BREAKFAST AND THIN LIQUIDS WITH NO THROAT CLEARING OR COUGH. PT IS AMBULATING TO BATHROOM AND CLOSET, GATHERING PERSONAL ITEMS FOR DISCHARGE HOME, PT PERFORMING PERSONAL HYGIENE, TOILETING AND PUTTING ON OWN CLOTHES WITH NO DIFFICULTY. PT STATES "I WILL GO TO REHAB FOR MY ALCOHOL ABUSE". PT STATED HE WILL WAIT IN FRONT OF HOSPITAL TO WAIT FOR FRIEND TO PICK HIM UP. DR ANTHONY NOTIFIED.
--- NOTE | 2019-03-01 09:49 | NUR ---
DC PLAN PATIENT FAMILY HAS BEEN IN ROOM LAST COUPLE OF DAYS. DR. ANTHONY AWARE OF DR. ART RECOMMENDATIONS. Addendum: 03/01/19 at 0950 by JAMAL RICHARDSON RN CM Amended: Links added.
== END 2019-03-01 08:30 | disposition home or self-care (01) | DRG 439 ==
LOC: EDH 12:25 → OBSVTOIN 12:26 → EDHIP 12:26 → 3AH 16:18 → 3DH 21:14 → 2CH 02-25 06:50 → 2DH 02-27 16:37
PROVIDERS: ADMIT Internal Medicine; ATTEND Internal Medicine
DX: K85.20 Alcohol induced acute pancreatitis without necrosis or infection (principal); K62.5 Hemorrhage of anus and rectum; K57.92 Diverticulitis of intestine, part unspecified, without perforation or abscess without bleeding; F10.231 Alcohol dependence with withdrawal delirium; E44.0 Moderate protein-calorie malnutrition; E87.6 Hypokalemia; K21.9 Gastro-esophageal reflux disease without esophagitis; F32.9 Major depressive disorder, single episode, unspecified; K74.60 Unspecified cirrhosis of liver; F41.1 Generalized anxiety disorder; D64.9 Anemia, unspecified; Z68.25 Body mass index [BMI] 25.0-25.9, adult; E83.42 Hypomagnesemia; E86.0 Dehydration; I10 Essential (primary) hypertension; K29.20 Alcoholic gastritis without bleeding; K70.10 Alcoholic hepatitis without ascites; K86.1 Other chronic pancreatitis
CPT/HCPCS: 36415; 74177; 80048; 80053; 80178; 80305; 81001; 82150; 83690; 84484; 85025; 85027; 87088; 93005; G0378; J0696; J2060; J2270; J2405; J3411; J3480; J3486; J3490; J7030; J7042; Q9967

== ENCOUNTER 2019-10-03 21:56 | Emergency (ER) | payer OTHER ==
[~2019-10-03 21:56] MED LIST changes: -ALPR0.5T8 PO; +DICY10CA13 PO; -LISI1TAB28 PO; +PROCTOCM PR; +QUET200T29 PO; -QUET25TA PO
[2019-10-03 23:10] LABS: BASOPHILS % (AUTO) 0.8 % (0.0-5.0); EOSINOPHILS % (AUTO) 0.8 % (0.0-8.0); HEMATOCRIT 34.3 % (42-54); LYMPHOCYTES % (AUTO) 21.2 % (21.0-51.0); MEAN CORPUSCULAR HEMOGLOBIN 22.3 pg (27.0-33.0); MEAN CORPUSCULAR HGB CONC 29.4 g/dL (32.0-36.0); MEAN CORPUSCULAR VOLUME 75.9 fL (79-99); MONOCYTES % (AUTO) 11.1 % (3.0-13.0); NEUTROPHILS % (AUTO) 65.6 % (40.0-77.0); PLATELET COUNT (AUTO) 289 K/uL (130-400); RED BLOOD CELL COUNT(AUTO) 4.52 MIL/uL (4.50-6.20); RED CELL DISTRIBUTION WIDTH 21.2 % (11.0-15.5); WHITE BLOOD COUNT (AUTO) 7.6 K/uL (4.8-10.8)
[2019-10-03 23:21] LABS: CREATININE 1.1 mg/dL (0.5-1.5); POTASSIUM 4.1 mmol/L (3.5-5.1)
[2019-10-03 23:25] LABS: INR 0.93 (0.85-1.15); PARTIAL THROMBOPLASTIN TIME 23.3 SEC (26.3-35.5); PROTHROMBIN TIME 10.1 SEC (9.6-11.6)
[2019-10-03 23:26] LABS: ALBUMIN 4.2 g/dL (3.5-5.0); BILIRUBIN,TOTAL 0.4 mg/dL (0.2-1.0); TOTAL PROTEIN, SERUM 8.2 g/dL (6.0-8.3)
[2019-10-04 00:41] LABS: AMPHET/METH SCREEN,URINE NEGATIVE (NEGATIVE); APPEARANCE,URINE Clear (CLEAR); BARBITURATE SCREEN, URINE NEGATIVE (NEGATIVE); BENZODIAZEPINES SCREEN,URINE POSITIVE (NEGATIVE); BILIRUBIN,URINE Negative (NEGATIVE); CANNABINOID SCREEN,URINE NEGATIVE (NEGATIVE); COCAINE SCREEN,URINE POSITIVE (NEGATIVE); COLOR,URINE Yellow (YELLOW); GLUCOSE, URINE (UA) Negative (NEGATIVE); KETONES,URINE Negative (NEGATIVE); LEUKOCYTE ESTERASE ,URINE Negative (NEGATIVE); NITRATE,URINE Negative (NEGATIVE); OCCULT BLOOD,URINE Negative (NEGATIVE); OPIATE SCREEN,URINE NEGATIVE (NEGATIVE); PHENCYCLIDINE SCREEN,URINE NEGATIVE (NEGATIVE); PROTEIN,URINE Negative (NEGATIVE); UROBILINOGEN,URINE 0.2 mg/dL (0.2-1.0)
[2019-10-04] MEDS ORDERED: ACETAMINOPHEN EXTRA STRENGTH 500 MG TABLET ONE (01:28)
[2019-10-04] MEDS ORDERED: FAMOTIDINE 20MG TAB 20 MG TAB ONE (01:28)
== END 2019-10-04 01:37 | disposition home or self-care (01) ==
LOC: EDH 21:56
DX: K85.90 Acute pancreatitis without necrosis or infection, unspecified (principal); F19.10 Other psychoactive substance abuse, uncomplicated; I10 Essential (primary) hypertension; R11.2 Nausea with vomiting, unspecified; K21.9 Gastro-esophageal reflux disease without esophagitis; F32.9 Major depressive disorder, single episode, unspecified; F41.9 Anxiety disorder, unspecified
CPT/HCPCS: 36415; 74176; 80053; 80305; 81003; 82150; 82550; 83690; 84484; 85025; 85610; 85730; 93005

== ENCOUNTER 2022-11-26 10:12 | Day surgery (SDC) | payer OTHER ==
[2022-11-25 13:55] VITALS: BP 169/100
[~2022-11-26] VITALS: Ht 177.8 cm; Wt 85.5 kg
[~2022-11-26 10:12] MED LIST changes: +ALPR1TAB2 PO; -CLON0.1T PO; +DESV100T PO; -DESV50TA20 PO; -DICY10CA13 PO; +LEVE750T4 PO; +LOSA100T59 PO; -METO-391 PO; +OMEP40CA21 PO; -PANT40TA25 PO; -PROCTOCM PR; -QUET200T29 PO; +TRAZ-187 PO
[2022-11-26 10:22] VITALS: BP 158/100
[2022-11-26] MEDS ORDERED: 0.9%NACL 1000ML 1,000 ML IV ONE (11:32)
[2022-11-26] MEDS ORDERED: PROPOFOL 10 MG/ML 20ML VIAL IV ONE ×3 (13:01→13:23)
== END 2022-11-26 14:20 | disposition home or self-care (01) ==
LOC: DAH 10:12 → ENDO 10:12
PROVIDERS: ATTEND Internal Medicine Gastroenterology
DX: K92.1 Melena (principal); Z20.822 Contact with and (suspected) exposure to COVID-19; D64.9 Anemia, unspecified; K57.30 Diverticulosis of large intestine without perforation or abscess without bleeding; K64.1 Second degree hemorrhoids; R11.2 Nausea with vomiting, unspecified; K21.00 Gastro-esophageal reflux disease with esophagitis, without bleeding; D69.59 Other secondary thrombocytopenia; K44.9 Diaphragmatic hernia without obstruction or gangrene; K29.00 Acute gastritis without bleeding; R74.01 Elevation of levels of liver transaminase levels; I10 Essential (primary) hypertension; F41.9 Anxiety disorder, unspecified; K76.0 Fatty (change of) liver, not elsewhere classified; D69.6 Thrombocytopenia, unspecified; Z90.49 Acquired absence of other specified parts of digestive tract; Z98.890 Other specified postprocedural states; Z86.16 Personal history of COVID-19; Z79.01 Long term (current) use of anticoagulants; Z79.899 Other long term (current) drug therapy
CPT/HCPCS: 87635; 43239; 45378; C9803; J7030 ×2; J2704 ×3; A4215 ×3; A4223; A4657 ×3; A7002; A4222; A4221; A4663; A4606